=== PATIENT | female | born 1930 | race Caucasian/White ===

== ENCOUNTER 2016-08-05 12:06 | Outpatient (CLI) ==
[2014-12-29 16:30] VITALS: BMI 33.4
--- NOTE | 2016-08-05 12:47 | DI ---
EXAM: RIGHT HIP, 2 VIEWS HISTORY: Right hip pain with no injury FINDINGS: Mild loss of articular cartilage width in the weightbearing portion of the hip joint cons istent with osteoarthritis. General bone density is within normal limits. No fracture or joint dis location. No discrete soft tissue abnormality. IMPRESSION: Early osteoarthritis of the hip.
--- NOTE | 2016-08-05 12:49 | DI ---
EXAM: Radiographs, pelvis HISTORY: Right hip pain. COMPARISON: None available. TECHNIQUE: Single frontal view. FINDINGS: Bone mineralization is decreased. There is no fracture or dislocation. The hip joint sp aces are maintained. Degenerative changes of the lower lumbar spine and pubic symphysis noted. No focal soft tissue abnormality is seen. IMPRESSION: No fracture or dislocation.
== END 2016-08-05 12:07 | disposition home or self-care (01) ==
LOC: RAD 12:06
PROVIDERS: ATTEND Family Medicine
DX: M25.551 Pain in right hip (principal)

== ENCOUNTER 2016-10-06 11:26 | Outpatient (CLI) ==
[2014-12-29 16:30] VITALS: BMI 33.4
--- NOTE | 2016-10-06 13:41 | US ---
EXAM: Ultrasound venous Doppler bilateral lower extremity HISTORY: Acute deep venous thrombus, follow-up on chronic left deep venous thrombosis COMPARISON: 09/05/2015 TECHNIQUE: Venous duplex ultrasound of the right and left lower extremity was performed using color , alcantara-scale, and Doppler flow imaging. FINDINGS: Redemonstration of partial compressibility and flow of the left common femoral, profunda femoral, f emoral, popliteal veins, grossly unchanged to the prior examination. There is normal color flow and alcantara scale appearance of the right common femoral, greater saphenous, profunda femoral, femoral, popliteal, peroneal, posterior tibial, and anterior tibial veins without evidence of intraluminal thrombus. Compression and augmentation is normal. IMPRESSION: 1. Redemonstration left lower extremity deep venous thrombosis, grossly unchanged from 09/05/2015 2. No right lower extremity deep venous thrombosis.
== END 2016-10-06 11:27 | disposition home or self-care (01) ==
LOC: RAD 11:26
PROVIDERS: ATTEND Family Medicine
DX: I82.409 Acute embolism and thrombosis of unspecified deep veins of unspecified lower extremity (principal); Z86.718 Personal history of other venous thrombosis and embolism

== ENCOUNTER 2018-11-08 14:27 | Emergency (ER) ==
[2018-11-08 14:28] VITALS: BMI 32.3
[2018-11-08 14:32] VITALS: BP 198/79; TEMP 98.6
[2018-11-08] MEDS ORDERED: SODIUM CHLORIDE 1,000 ML IV STA (15:09)
[2018-11-08] MEDS ORDERED: DECADRON 4 MG/ML SDV IV STA (15:17)
--- NOTE | 2018-11-08 16:04 | CT ---
EXAM: CT NECK HISTORY: Neck swelling, difficulty swallowing/breathing TECHNIQUE: CT neck without intravenous contrast. 3-mm axial sections. Coronal and sagittal reforma tions. FINDINGS: No comparison CT. The tongue and possibly lingual tonsillar tissues are prominent in size. This narrows the oropharyng eal airway to some degree. Epiglottis appears normal. There is no parapharyngeal fluid collection i dentified. No lymphadenopathy is seen. Incidental note of symmetrically enlarged bilateral submandi bular glands. The parotid glands are grossly within normal limits. There are scattered calcificatio ns in the right parapharyngeal soft tissues and near the anterior left parotid gland which may be dys trophic in nature or least the left-sided entity could represent a ductal calculus. These calcificat ions measure about 2.5 mm or less. There is no evidence of inflammatory fatty infiltration of the ne ck or salivary glands. Mastoid air cells are aerated. The visualized paranasal sinuses are clear. The bones reveal no acute finding. Upper lung luong are clear. IMPRESSION: The tongue and possibly lingual tonsillar tissues are prominent in size. Without compar kareem studies, it is difficult to determine whether this is normal for the patient or evidence of ritesh a/inflammation, or other pathology. This narrows the oropharyngeal airway to some degree. Epiglotti s appears normal. Other findings as described above.
[2018-11-08] MEDS ORDERED: PEPCID IVP STA (16:17)
--- NOTE | 2018-11-08 17:10 | ED.PDOC ---
General ED Provider: Dr. ELIZABETH MOORE Chief Complaint: Sore Throat Stated Complaint: thinks that her throat is closing off no evidence of dyspnea , able to drink not short of Time Seen by Physician: 14:30 (no air way issues on arrival able to drink saw with heath ARTEAGA SAW PT AT 5 PM IN ED ) Mode of Arrival: Walk-In Information Source: Patient, Family Exam Limitations: No limitations Primary Care Provider: XIMENA ROE Nursing and Triage Documentation Reviewed and Agree: Yes Does patient meet sepsis criteria?: No System Inflammatory Response Syndrome: Not Applicable Sepsis Protocol: For patient's 13 years and over: Temp is 96.8 and below OR 101 and greater Pulse >90 BPM Resp >20/minute Acutely Altered Mental Status Are patient's symptoms suggestive of a new infection, such as: -Pneumonia -Skin, Soft Tissue -Endocarditis -UTI -Bone, Joint Infection -Implantable Device -Acute Abdominal Infection -Wound Infection -Meningitis -Blood Stream Catheter Infection -Unknown EENT Complaint Exam - Throat Complaint/Exam Onset/Duration: TODAY Symptoms Are: Resolved Timimg: Intermittent Initial Severity: Mild Current Severity: None Aggravating: Reports: None Alleviating: Reports: None Associated Signs and Symptoms: Denies: Fever, Dysphagia, Drooling, Foreign body sensation, Chills, Cough, Wheezing, Hoarseness, Sinus discomfort, Nasal congestion, Difficulty breathing, Lethargy, Irritability, Decreased activity, Vomiting, Diarrhea, Decreased hearing, Ear drainage Uvula Midline: Yes Mercedes-tonsillar Fluctuence: No Scarlatinaform Rash Present: No Lesions: Absent: Lip, Gums, Tongue, Buccal Mucosa, Pharynx Exanthem: Absent: Lip, Gums, Tongue, Buccal Mucosa, Pharynx Vesicles: Absent: Lip, Gums, Tongue, Buccal Mucosa, Pharynx Stridor Present: Yes Sinus Tenderness Present: No Tonsillar Hypertrophy Present: No Tonsillar Exudate Present: No Mercedes-tonsillar Swelling Present: No Adenopathy Present: No Splenomegaly Present: No Differential Diagnoses: Pharyngitis Review of Systems - Review Of Systems Constitutional: Reports: No symptoms Eyes: Reports: No symptoms Ears, Nose, Mouth, Throat: Reports: Throat pain Respiratory: Reports: No symptoms Cardiac: Reports: No symptoms GI: Reports: No symptoms : Reports: No symptoms Musculoskeletal: Reports: No symptoms Skin: Reports: No symptoms Neurological: Reports: No symptoms Endocrine: Reports: No symptoms Hematologic/Lymphatic: Reports: No symptoms All Other Systems: Reviewed and Negative Past Medical History - Past Medical History Previously Healthy: Yes Endocrine: Reports: None Cardiovascular: Reports: Hypertension Respiratory: Reports: None Hematological: Reports: None Gastrointestinal: Reports: None Genitourinary: Reports: None Neuro/Psych: Reports: None Musculoskeletal: Reports: None Cancer: Reports: None Last Menstrual Period: none Other Pertinent Past Medical History: Angioedema, arrhythmia, hives - Surgical History General Surgical History: Reports: None - Family History Family History: Reports: None - Social History Smoking Status: Never smoker Hx Substance Use: No Alcohol Screening: None Physical Exam - Physical Exam Appearance: Well-appearing, No pain distress, Well-nourished Eyes: GILES, EOMI, Conjunctiva clear ENT: Ears normal, Nose normal, Oropharynx normal Respiratory: Airway patent, Breath sounds clear, Breath sounds equal, Respirations nonlabored Cardiovascular: RRR, Pulses normal, No rub, No murmur GI/: Soft, Nontender, No masses, Bowel sounds normal, No Organomegaly Musculoskeletal: Normal strength, ROM intact, No edema, No calf tenderness Skin: Warm, Dry, Normal color Neurological: Sensation intact, Motor intact, Reflexes intact, Cranial nerves intact, Alert, Oriented Psychiatric: Affect appropriate, Mood appropriate Interpretation - Radiology Interpretation Radiology Interpretation By: Radiologist Radiology Results: Positive (edema) Critical Care Note - Critical Care Note Total Time (mins): 0 Course - Course Hematology/Chemistry: 11/08/18 15:15 11/08/18 15:15 Orders, Labs, Meds: Lab Review 11/08/18 11/08/18 15:15 15:15 WBC 5.79 RBC 4.95 Hgb 11.6 L Hct 39.0 MCV 78.8 L MCH 23.4 L MCHC 29.7 L RDW Coeff of Guillermo 15.8 H Plt Count 214 Immature Gran % (Auto) 0.3 Neut % (Auto) 60.9 Lymph % (Auto) 26.6 [place] % (Auto) 8.8 Eos % (Auto) 3.1 Baso % (Auto) 0.3 Immature Gran # (Auto) 0.0 Neut # (Auto) 3.5 Lymph # (Auto) 1.5 [place] # (Auto) 0.5 Eos # (Auto) 0.2 Baso # (Auto) 0.0 Sodium 141.8 Potassium 3.77 Chloride 101.3 Carbon Dioxide 31.1 H Anion Gap 13.17 BUN 19.0 H Creatinine 1.15 Estimated GFR (MDRD) 45.00 BUN/Creatinine Ratio 16.52 Glucose 137.1 H Calcium 10.01 Total Bilirubin 0.49 AST 19.9 ALT 16.0 Alkaline Phosphatase 82.3 Total Protein 7.67 Albumin 4.22 Globulin 3.45 Albumin/Globulin Ratio 1.22 Orders Category Date Time Status EKG-(ED ONLY) Stat CARDIO 11/08/18 15:09 Completed ED IV/MEDIPORT/POWERPORT .ONCE EMERGENCY 11/08/18 15:09 Active CBC W/ AUTO DIFF Stat LAB 11/08/18 15:15 Completed COMPREHENSIVE METABOLIC PANEL Stat LAB 11/08/18 15:15 Completed 0.9 % Sodium Chloride [Saline Flush] MEDS 11/08/18 15:08 Active 1 syr IVF PRN PRN Dexamethasone 4 mg/ml Inj [Decadron 4 mg/ml Sdv] MEDS 11/08/18 15:17 Discontinued 4 mg IV ONCE STA Famotidine Inj [Pepcid] MEDS 11/08/18 16:17 Discontinued [address]P ONCE STA CT SOFT TISSUE NECK W/O CONTR Stat RADS 11/08/18 15:12 Completed Medications Generic Name Dose Route Start Last Admin Trade Name Freq PRN Reason Stop Dose Admin Sodium Chloride 1 syr 11/08/18 15:08 11/08/18 16:37 Saline Flush IVF 1 syr PRN PRN Administration To flush IV Discontinued Medications Generic Name Dose Route Start Last Admin Trade Name Freq PRN Reason Stop Dose Admin Dexamethasone Sodium Phosphate 4 mg 11/08/18 15:17 11/08/18 15:25 Decadron 4 Mg/Ml Sdv IV 11/08/18 15:18 4 mg ONCE STA Administration Famotidine 20 mg 11/08/18 16:17 11/08/18 16:37 Pepcid IVP 11/08/18 16:18 20 mg ONCE STA Administration Vital Signs: Temp Pulse Resp BP Pulse Ox 11/08/18 14:28 98.6 F 63 20 198/79 H 93 L Departure - Departure Time of Disposition: 17:23 Disposition: HOME SELF-CARE Discharge Problem: Sore throat symptom Instructions: Pharyngitis (ED) Condition: Good Pt referred to PMD for follow-up: Yes IPMP verified?: No Additional Instructions: Please call your Family Physician as soon as possible to schedule a follow-up appointment.RETURN IF YOUR THROAT IS CLOSING Allergies/Adverse Reactions: Allergies KARINE Inhibitors Allergy (Severe, Verified 11/08/18 14:32) Swelling angioedema requires epi pen use clonidine Allergy (Severe, Verified 11/08/18 14:32) Swelling tongue swelling diphenhydramine [From Benadryl] Adverse Reaction (Verified 11/08/18 14:32) Home Medications: Ambulatory Orders Digoxin [Lanoxin] 125 mcg PO DAILY 12/12/12 Fexofenadine HCl [[place] Allergy] 180 mg PO DAILY PRN 12/12/12 Amlodipine Besylate [Norvasc] 5 mg PO DAILY 12/29/14 Bisoprolol Fumarate/Hctz [Ziac 5-6.25 mg] 1 tab PO DAILY 12/29/14 Ranitidine HCl [Zantac] 150 mg PO DAILY 12/29/14 Epinephrine [Epipen Twinpak] 0.3 mg IM PRN PRN #1 pen.injctr 04/05/18 Sitagliptin Phosphate [Januvia] 25 mg PO DAILY 11/08/18 Disposition Discussed With: Patient
== END 2018-11-08 17:35 | disposition home or self-care (01) ==
LOC: ED 14:27
DX: J02.9 Acute pharyngitis, unspecified (principal); I10 Essential (primary) hypertension; Z79.899 Other long term (current) drug therapy
CPT/HCPCS: 36415; 80053; 85025; 93005; 93010; 96374; 96375; 99283

== ENCOUNTER 2018-12-27 15:18 | Outpatient (CLI) ==
--- NOTE | 2018-12-28 08:55 | DI ---
EXAM: Two views of the chest. History: Cough. Comparison: Chest radiograph 12/29/2014 Findings: Heart is enlarged. No overt heart failure. No pleural fluid and no pneumothorax. No con solidated pneumonia. No acute osseous abnormalities. Impression: Cardiomegaly without overt heart failure
== END 2018-12-27 15:19 | disposition home or self-care (01) ==
LOC: RAD 15:18
PROVIDERS: ATTEND Family Medicine
DX: R05 Cough (principal)